=== PATIENT | male | born 1935 | race Caucasian/White ===

== ENCOUNTER → 2020-05-07 | Outpatient (CLI) | payer MEDICARE ==
[~2020-05-07] MED LIST: ASPI81TA11 PO; HYDR-2145 PO; INSU100V13 SQ; SIMV80TA17 PO; losartan PO; metformin PO; novolog SUBCUT
== END ==
LOC: LAB 11:38
PROVIDERS: ATTEND Internal Medicine Cardiovascular Disease
DX: I48.0 Paroxysmal atrial fibrillation (principal); E08.9 Diabetes mellitus due to underlying condition without complications; Z79.4 Long term (current) use of insulin; Z20.828 Contact with and (suspected) exposure to other viral communicable diseases
CPT/HCPCS: 36415; 85610